=== PATIENT | female | born 1995 | race Hispanic/Latino ===

== ENCOUNTER 2018-11-03 05:21 | Inpatient (IN) | payer OTHER ==
[2018-11-03 05:57] VITALS: BMI 24.8
--- NOTE | 2018-11-03 06:28 | PDOC.FPROB ---
FMR OB H&P: HPI - History of Present Illness Chief Complaint: Contractions History of Present Illness: This is a 23 yo at 38.5 wks by LMP who presents to L&D with a cc of contractions. She reports that her contractions started at 2300 last night. She reports her contractions every 5 minutes. She state that she thinks she lost fluid 5 days ago but was is unsure because this is her first time. She denies vaginal bleeding or discharge. She reports movement. FMR OB H&P: Current - Care : 1 Para: 0 Gestational age: 38.5 Due date: 11/12/18 Dating Criteria: LMP/21.3wk US - OB Labs Blood type: B RH: positive Antibody Screen: negative HIV: negative RPR: negative HepBsAg: negative Rubella: immune Gonorrhea: negative Chlamydia: negative (pos 07/18/18, WALTER 09/26/18) Pap Smear: ASCUS 1 hour gtt: 121 GBS: negative Additional labs: Hep C negative FMR OB H&P: History - Past Medical History PMH: None - Surgical History Sx History: None - Social History Social History: Denies alcohol, tobacco, drugs FMR OB H&P: Medications - Current Home Medications: Medication Instructions Recorded Confirmed Type 21/Iron Fu/Folic Acid 1 tablet PO DAILY 11/03/18 11/03/18 History [ Complete Caplet] Allergies/Adverse Reactions: Allergies Allergy/AdvReac Type Severity Reaction Status Date / Time No Known Allergies Allergy Verified 11/03/18 05:59 FMR OB H&P: ROS - Review of Systems General: denies: fever/chills, weight/appetite/sleep changes ENT: denies: nasal congestion, rhinorrhea Cardiovascular: denies: chest pain, palpitation Gastrointestinal: reports: abdominal pain (pain with contractions and without contractions). denies: indigestion Genitourinary (Female): denies: incontinence, dysuria Musculoskeletal: denies: pain, stiffness Neurologic: denies: numbness, syncope Integumentary: denies: itching, rash Psychological: denies: depression, anxiety FMR OB H&P: Vital Signs - Maternal Vital signs: BP 139/77 HR 89 - Heart Tones Baseline: 130 Variability: moderate Acceleration: present Deceleration: absent Category: category 1 Dwight contractions every: 3-5 FMR OB H&P: Physical Exam - Physical Exam General: NAD, awake, alert and oriented HEENT: normocephalic and atraumatic, MMM Neck: trachea midline, no JVD Chest: non-tender to palpation, no lesions Heart: RRR, normal S1/S2, no murmurs/rubs/gallops, pulses present General: CTAB, no respiratory distress, no wheezing Abdomen: soft, gravid, bowel sound present, other (mild tenderness to palpation) Musculoskeletal: normal gait and station, pulses present, FROM in all four extremities Skin: capillary refill <2 seconds Lymphatic: no unusual bruising or bleeding, no purpura Psychiatric: intact recent and remote memory, good judgement and insight - Pelvic Exam SVE: /-2 Estimated Weight: 6 lbs (by song olivia) FMR OB H&P: A/P - Problem List (1) Term Current Visit: Yes Status: Acute Code(s): Z34.80 - ENCOUNTER FOR SUPRVSN OF NORMAL , UNSP TRIMESTER Assessment and Plan: This is a 23 yo at 38.5 by LMP c/w 21.3wk US Term r/o active labor -r/o LOF, RAMY today was 6, we will perform sterile speculum exam, amnisure, and ferning at the next check -Check for cervical changes, Initial was /-2 -PO hydration -Continue monitoring FHTs Discussion: Date/Time: 11/03/18 0661 This H&P was discussed with Dr. Perdomo who agree with the above documentation and plan.
[2018-11-03 09:22] LABS: Amnisure Test RUPTURE DETECTED (No Rupture)
[2018-11-03 09:23] LABS: Amnisure Internal Control QC ACCEPTABLE (ACCEPTABLE)
[2018-11-03] MEDS ORDERED: Ondansetron PF 4 MG/2 ML Vial IVP PRN ×2 (09:31→12:25)
[2018-11-03] MEDS ORDERED: Lidocaine 1% (PF) 30 ML VIAL SC PRN (09:31)
[2018-11-03] MEDS ORDERED: Promethazine HCl 25 MG/ML VIAL IM PRN ×2 (09:31→12:25)
[2018-11-03] MEDS ORDERED: Butorphanol Tartrate 1 MG/ML VIAL SLOW IVP PRN (09:31)
[2018-11-03] MEDS ORDERED: Lidocaine 2% Jelly 5 ML TUBE ONE (10:06)
--- NOTE | 2018-11-03 10:24 | PDOC.LDHP ---
Labor and Delivery H&P Chief complaint: loss of fluid HPI: Patient is a G1 with LOF over last several days, also with CTX., She was first evaluated prior jessica my arrival at 0800. The DX is now PROM based on sterile spec by the residents and pos amnisure. VP3 also sent. She has good FM, no VB, no fevers. I have a handwritten H&P in the chart as well. Current gestational age (weeks): 38 (6 days) Dating criteria: last menstrual period Grav: 1 Para: 0 Current complications: none Abnormal US findings: No Current medications: pre- vitamins Previous surgical history: none Allergies/Adverse Reactions: Allergies Allergy/AdvReac Type Severity Reaction Status Date / Time No Known Allergies Allergy Verified 11/03/18 05:59 - Physical Exam Vital signs reviewed and normal: yes General: NAD Heart: RRR Lungs: CTAB Abdomen: gravid (EFW 6#) FHT: category 1 [place] contractions every: every 3 minutes on [place] - Vaginal Exam cm dilated: 3 (Exam by me about 20 minutes ago. Patient did not tolerate exam well, as has been the saame on pror vag exam attenpts. I applied lidociane 2% locally at the perineum pre-exam (used new glove for vag exam after application) ) Effacement: 50% Station: -1 - Assessment L&D Assessment: term rupture in membranes (PROM at early term (38 weeks 6 days) . GBS negative.) - Plan Plan: admit to L&D, labor augmentation if indicated (Currently, boris more than pit protocol allows...will follow.), anesthesia consult for pain management (I discussed with the patient and her , in [facility], along with Debby and Dr yates- at bedside- the [facility] of [facility] for pain control, especially as SVE not well tolerated. I also discussed IV pain meds. She will see the epidural video and decide.)
--- NOTE | 2018-11-03 10:38 | PDOC.EVN ---
Event Note - Event Note Event Note: Patient has decided to initiate epidural as cervical checks have been very uncomfortable for her. VS stable, last cervical check @1010 /-1. FHTs 120 Cat 1. CTXs every 2-3min Anesthesia consult has been placed. Will start pit if contraction timing spaces out
[2018-11-03] MEDS ORDERED: NS w/ Oxytocin 10 units 500 ML IV SCH ×2 (11:00)
[2018-11-03 11:24] LABS: Hemoglobin 11.5 g/dL (12.0-16.0); Mean Corpuscular HGB CONC 34.3 g/dL (32.0-36.0); Mean Corpuscular Hemoglobin 31.1 pg (27.0-31.0); Mean Corpuscular Volume 90.6 fL (78.0-98.0); Platelet Count 149 thou/uL (130-400); RBC Distribution Width 11.4 % (11.5-14.5); White Blood Cell (WBC) Count 8.4 thou/uL (4.8-10.8)
[2018-11-03] MEDS ORDERED: Fentanyl 4 mcg/Bup 0.1% Cadd 100 ML ONE ×2 (11:35→19:07)
--- NOTE | 2018-11-03 11:36 | PDOC.EVN ---
Event Note - Event Note Event Note: VP3 with BV...We will RX with IV Flagyl to reduce risk for PP metritis. GC and Chl not able to be run due to incorrect swab collection.
[2018-11-03] MEDS ORDERED: METRONIDAZOLE IVPB SCH ×2 (11:45→18:00)
[2018-11-03 11:47] LABS: Syphilis Antibody Nonreactive (Nonreactive); Syphilis Antibody Index 0.02 S/CO (<1.00 Non-Reactive)
[2018-11-03 11:48] LABS: HBSAg Index 0.21 S/CO (0-0.99); Hep B Surf Ag Non-Reactive S/CO (NonReactive)
[2018-11-03] MEDS: NS / Oxytocin 40 units/1000ml 1,000 ML IV PRN (11:50)
[2018-11-03] MEDS ORDERED: Lactated Ringer's 500 ML IV PRN (12:25)
[2018-11-03] MEDS ORDERED: Eucerin (Mineral Oil/Petrolatum,White) 30 gm Jar TOP PRN (12:25)
[2018-11-03] MEDS ORDERED: diphenhydrAMINE 50 MG/ML VIAL IVP PRN (12:25)
[2018-11-03] MEDS ORDERED: ePHEDrine/0.9% NaCl/PF SYRINGE 50 mg/10 ml SLOW IVP PRN (12:25)
[2018-11-03] MEDS ORDERED: Naloxone HCl 0.4 mg/ml Vial IVP PRN ×2 (12:25)
[2018-11-03] MEDS ORDERED: Communication Order-Pharmacy FS SCH (12:30)
[2018-11-03] MEDS ORDERED: Fentanyl 4 mcg/Bupivacaine 0.1% Cassette 100 ML EPIDURAL SCH (12:30)
[2018-11-03] MEDS: metroNIDAZOLE 500 MG in Premix Bag 1 BAG IVPB SCH (14:05)
[2018-11-03] MEDS ORDERED: Lactated Ringer's 1,000 ML IV SCH (15:45)
--- NOTE | 2018-11-03 17:30 | PDOC.EVN ---
Event Note - Event Note Event Note: [facility]: Here with Dr Wade: L&D Board check: Patient now 680/-1... Afebrile. BPs noted as 140/90s... We will check CBC and CMP for preeclampsia eval. Mag Sulfate for any severe criteria RICHAR in use
[2018-11-03 18:58] LABS: #Lymphocytes 1.9 thou/uL (1.20-3.40); #Monocytes 0.6 thou/uL (0.11-0.59); %Basophils 0.4 % (0.0-1.0); %Eosinophils 0.2 % (0.0-10.0); %Lymphocytes 16.3 % (21.0-51.0); %Monocytes 5.4 % (0.0-10.0); %Neutrophils 77.7 % (42.0-75.0); Hemoglobin 11.5 g/dL (12.0-16.0); Mean Corpuscular HGB CONC 34.9 g/dL (32.0-36.0); Mean Corpuscular Hemoglobin 31.5 pg (27.0-31.0); Mean Corpuscular Volume 90.3 fL (78.0-98.0); Mean Platelet Volume 10.8 fL (7.4-10.4); Platelet Count 136 thou/uL (130-400); RBC Distribution Width 11.4 % (11.5-14.5); Red Blood Cell (RBC) Count 3.63 mill/uL (4.20-5.40); White Blood Cell (WBC) Count 11.6 thou/uL (4.8-10.8)
[2018-11-03] MEDS ORDERED: metroNIDAZOLE 500 MG in Premix Bag 1 BAG IVPB SCH ×2 (19:00→21:00)
[2018-11-03 19:11] LABS: ALT (SGPT) Less than 7 U/L (8-55); AST (SGOT) 14 U/L (5-34); Albumin 3.1 g/dL (3.5-5.0); Alkaline Phosphatase 274 U/L (40-150); Anion Gap 12 mmol/L (10-20); BUN (Urea Nitrogen) Less than 4 mg/dL (7.0-18.7); Bilirubin, Total 0.4 mg/dL (0.2-1.2); Calc. Creatinine Clearance 131 mL/min (70-130); Calcium 8.6 mg/dL (7.8-10.44); Carbon Dioxide 23 mmol/L (22-29); Chloride 107 mmol/L (98-107); Estimated GFR-MDRD Greater than 90; Globulin 2.8 g/dL (2.4-3.5); Glucose 90 mg/dL (70-105); Potassium 3.1 mmol/L (3.5-5.1); Protein, Total 5.9 g/dL (6.0-8.3); Sodium 139 mmol/L (136-145)
--- NOTE | 2018-11-03 20:07 | PDOC.EVN ---
Event Note - Event Note Event Note: [facility] Staff: Lab Check: PIH Labs wnl BPs wnl Strop reviewed
--- NOTE | 2018-11-04 00:08 | PDOC.EVN ---
Event Note - Event Note Event Note: OBGYN NOTE: Delivery note: Dr Wade attending this delivery first and then I arrived during the process as I was in a separate room doing another delivery. I arrived for the remainder of the procedure. Time: 2328, 11/03/18 Placenta...spont delivery, 3VC at 2336 Baby was male and vigorous. EBL was 300. There was a first degree lac that did not need repair. No packs. Maternal temp noted pre-delivery of 101. As patient had prolonged ROM and BV on VP3..we will suspect IAI and give IV amp/gent/falgyl. Anesthesia: RICHAR used. QBL pending. Routine
[2018-11-04] MEDS ORDERED: Ampicillin 2 GM in Sodium Chloride 0.9% 100 ML IVPB SCH (00:30)
[2018-11-04] MEDS: SODIUM CHLORIDE 0.9% IVPB SCH (01:55)
[2018-11-04] MEDS: GENTAMICIN SULFATE IVPB SCH (01:55)
--- NOTE | 2018-11-04 02:36 | PDOC.OPDEL ---
OB Operative/Delivery Note Delivery Dr/Surgeon: Sheri Assist: Keyshawn Pre-Delivery Diagnosis: ruptured membrane Procedure/Post Delivery Dx: spontaneous vaginal delivery Weeks gestation: 38 (38.6 wks) Anesthesia: epidural - Findings A Sex: male Weight: 3.174 kg - 1 min: 8 - 5 min: 9 - Additional Findings/Plan Placenta delivered: spontaneous Repaired Obstetrical Laceration: 1st degree (Hemostatic) Estimated blood loss: 300 mL Compilations/Other Findings: Delivering Physician: Sheri Attending: Keyshawn Procedure: Spontaneous Vaginal Delivery Anesthesia: Epidural EBL: 300 ml Pre-op Diagnosis: 1. Term intrauterine 2. PROM 2. Bacterial Vaginosis Post-op Diagnosis: 1. Term intrauterine , delivered 2. same as above 3. Suspected intrauterine infection 4. 1st degree perineal laceration, hemostatic Indications: A 23 y/o female presents with PROM, suspected since 4 days prior to arrival to L&D. Delivery Note: This is 23 yo F @ 38.6 wks who delivered a viable M at 23:29 on 11/03/2018. Following an uneventful antepartum course, a vigorous M was delivered over an intact perineum in the occipitoanterior position. Anterior shoulder and then remainder of the body delivered. The head was held down and mouth and nares were bulb suctioned. Cord clamped and cut and cord blood collected. Placenta delivered intact with a 3 vessel cord noted. Fundal massage was performed and the fundus was firm. The cervix and vagina were inspected. 1st degree perineal laceration noted to be hemostatic. No repair necessary. went to nursery in good condition for routine care. Apgars were 8/9 at 1 & 5 minutes, respectively. Patient tolerated delivery well and went to after routine recovery/care. Patient was noted to have several elevated BP's during the course of her labor ( >140/90). No BP's in severe range. Pre-E workup was performed and labs were normal. She was diagnosed with gHTN. She did not require any medications to control BP. She will need to be monitored closely PP. Patient spiked fever to 101.5 F just prior to delivery. Patient suspected to have been ruptured for 4 days, putting her at high risk for IUI. She was started on Amp/Gent immediately PP to be continued for 24 hours. Continue to monitor for signs and symptoms of infection. Patient also on PO flagyl for BV diagnosed on arrival to L&D. She will complete the full 7 day course of antibiotics. Infant will be treated accordingly for suspected IUI. to be started on Amp/Gent and monitored closely. CBC and CMP pending for . Post delivery plan: routine recovery
[2018-11-04] MEDS: NS / Oxytocin 40 units/1000ml 1,000 ML IV PRN (03:05)
[2018-11-04] MEDS ORDERED: Preparation H Ointment 28 GM TUBE PR PRN (03:35)
[2018-11-04] MEDS ORDERED: Ondansetron PF 4 MG/2 ML Vial IVP PRN (03:35)
[2018-11-04] MEDS ORDERED: Lanolin Ointment 7 GM TUBE TOP PRN (03:35)
[2018-11-04] MEDS ORDERED: Milk Of Magnesia 30 ML UDCUP PO PRN (03:35)
[2018-11-04] MEDS ORDERED: Bisacodyl 10 MG SUPP PR PRN (03:35)
[2018-11-04] MEDS ORDERED: NS / Oxytocin 40 units/1000ml 1,000 ML IV SCH (03:35)
[2018-11-04] MEDS ORDERED: diphenhydrAMINE 25 MG CAP PO PRN (03:35)
[2018-11-04] MEDS: Ibuprofen 800 MG TAB PO SCH ×3 (04:18→21:18)
--- NOTE | 2018-11-04 05:50 | PDOC.PP ---
Post Progress Note Post Day #: 1 Subjective: Patient doing well this AM. No significant overnight events. Tolerating PO. Ambulating. Lochia minimal. PO intake tolerated: yes Flatus: yes Ambulation: yes Weight Weight 61.689 kg - Physical Examination General: NAD Cardiovascular: no m/r/g, RRR Respiratory: clear to auscultation bilaterally, non-labored breathing Abdominal: + bowel sounds, lochia (like that of a period), no distention, appropriately TTP Fundus firm & at: just above umbilicus Skin: no rash Neurological: no gross focal deficits Psychiatric: A&Ox3, normal affect Result Diagrams: 11/03/18 18:37 11/03/18 18:37 Additional Labs: Post Labs Blood Type B POSITIVE 11/03/18 10:59 Hep Bs Antigen Non-Reactive S/CO (NonReactive) 11/03/18 10:59 (1) Term delivered Code(s): O80 - ENCOUNTER FOR FULL-TERM UNCOMPLICATED DELIVERY Status: Acute Comment: 23 year old at 38.6 wks delivered TAGA M infant at 23:39 via on 11/03/2018. Nuchal x1. First degree perineal laceration s/p repair. Apgars 8/ 9. EBL 300 mL - Routine PP care - Contraception: Discuss with patient prior to d/c - VSS (2) Chorioamnionitis, delivered, current hospitalization Code(s): O41.1290 - CHORIOAMNIONITIS, UNSP TRIMESTER, NOT APPLICABLE OR UNSP Status: Acute Comment: Temp to 101.5 F just prior to delivery. Patient started on Amp/Gent x24 hours after delivery. Temp 99.3 F prior to transfer to PP. AM CBC pending. (3) Hypertension affecting Code(s): O16.9 - UNSPECIFIED MATERNAL HYPERTENSION, UNSPECIFIED TRIMESTER Status: Acute Comment: CBC and CMP wnl. No concern for pre-E. BP's have been better controlled. Continue to monitor. (4) Vaginal delivery Code(s): O80 - ENCOUNTER FOR FULL-TERM UNCOMPLICATED DELIVERY Status: Acute (5) First degree laceration of perineum during delivery, Code(s): O70.0 - FIRST DEGREE PERINEAL LACERATION DURING DELIVERY Status: Acute Comment: Hemostastic. - Assessment/Plan Dispo: Stable. Patient G1 and will likely stay full 48 hours due to infant.
--- NOTE | 2018-11-04 06:04 | PDOC.EVN ---
Event Note - Event Note Event Note: OBGYN Faculty: Agree with Dr Wade progress note: Afebrile currently. On IV amp/gent, and po flagyl for BV Follow temps in this PP patient
[2018-11-04] MEDS: Ampicillin 2 GM in Sodium Chloride 0.9% 100 ML IVPB SCH ×4 (06:39→23:57)
[2018-11-04 08:10] LABS: #Lymphocytes 1.8 thou/uL (1.20-3.40); #Monocytes 0.8 thou/uL (0.11-0.59); #Neutrophils 15.7 thou/uL (1.40-6.50); %Basophils 0.2 % (0.0-1.0); %Eosinophils 0.2 % (0.0-10.0); %Monocytes 4.5 % (0.0-10.0); %Neutrophils 85.3 % (42.0-75.0); Hemoglobin 9.9 g/dL (12.0-16.0); Mean Corpuscular HGB CONC 34.5 g/dL (32.0-36.0); Mean Corpuscular Hemoglobin 31.3 pg (27.0-31.0); Mean Corpuscular Volume 90.8 fL (78.0-98.0); Mean Platelet Volume 10.5 fL (7.4-10.4); Platelet Count 126 thou/uL (130-400); RBC Distribution Width 11.3 % (11.5-14.5); Red Blood Cell (RBC) Count 3.16 mill/uL (4.20-5.40); White Blood Cell (WBC) Count 18.5 thou/uL (4.8-10.8)
[2018-11-04] MEDS: metroNIDAZOLE 500 MG TAB PO SCH ×2 (08:43→21:18)
[2018-11-04] MEDS: Docusate Calcium (SURFAK) 240 MG CAP PO SCH ×2 (08:43→21:18)
[2018-11-04] MEDS: Ferrous Sulfate 325 MG TAB PO SCH ×2 (08:43→17:54)
[2018-11-04] MEDS: Prenatal Vitamin 1 TAB PO SCH (08:48)
[2018-11-04] MEDS: Acetaminophen 325 MG TAB PO PRN (08:48)
[2018-11-04] MEDS ORDERED: Adacel (T-DAP) 0.5 ML SYRINGE IM ONE (09:00)
[2018-11-04] MEDS: metroNIDAZOLE 500 MG in Premix Bag 1 BAG IVPB SCH (14:21)
[2018-11-04] MEDS: Sodium Chloride 0.9% 10 ML ONE (17:54)
[2018-11-04] MEDS: HYDROcodone/Acetaminophen 5/325 mg Tablet PO PRN (18:25)
[2018-11-04] MEDS ORDERED: Sodium Chloride 0.9% 10 ML ONE (23:40)
[2018-11-05] MEDS: GENTAMICIN SULFATE IVPB SCH (01:13)
[2018-11-05] MEDS: SODIUM CHLORIDE 0.9% IVPB SCH (01:13)
[2018-11-05] MEDS ORDERED: Sodium Chloride 0.9% 10 ML ONE ×2 (05:02→19:15)
[2018-11-05] MEDS: Ibuprofen 800 MG TAB PO SCH ×3 (06:01→21:28)
[2018-11-05] MEDS: Ampicillin 2 GM in Sodium Chloride 0.9% 100 ML IVPB SCH (06:02)
[2018-11-05] MEDS: HYDROcodone/Acetaminophen 5/325 mg Tablet PO PRN ×2 (06:53→14:41)
--- NOTE | 2018-11-05 07:30 | PDOC.PP ---
Post Progress Note Post Day #: 2 Subjective: 23 year old at 38.6wks delivered EMILIANO Ramos at 23:39 via on 2017. Pain is well controlled with Elberta and ibuprofen. Reports some vaginal swelling. but baby was formula fed in nursery overnight. Reports feeding is going well. She is tolerating PO and ambulating. She has had a headache since delivery, was seen by anesthesia this morning and they thought it was likely due to epidural. She declined patch. She wants to try drinking some coffee this morning to see if it helps. PO intake tolerated: yes Flatus: yes Ambulation: yes Vital Signs (12 hours) Temp Pulse Resp BP 11/04/18 23:57 97.9 F 61 18 156/91 H 11/04/18 19:35 98.2 F 61 18 145/88 H Weight Weight 61.689 kg - Physical Examination General: NAD Cardiovascular: no m/r/g, RRR Respiratory: clear to auscultation bilaterally, non-labored breathing Abdominal: + bowel sounds, lochia, appropriately TTP Neurological: no gross focal deficits Psychiatric: A&Ox3, normal affect Result Diagrams: 11/05/18 09:02 11/05/18 09:02 Additional Labs: Post Labs Blood Type B POSITIVE 11/03/18 10:59 Hep Bs Antigen Non-Reactive S/CO (NonReactive) 11/03/18 10:59 (1) Chorioamnionitis, delivered, current hospitalization Code(s): O41.1290 - CHORIOAMNIONITIS, UNSP TRIMESTER, NOT APPLICABLE OR UNSP Status: Acute Comment: Temp to 101.5 F just prior to delivery. Patient started on Amp/Gent x24 hours after delivery. Temp 99.3 F prior to transfer to . AM CBC pending. (2) First degree laceration of perineum during delivery, Code(s): O70.0 - FIRST DEGREE PERINEAL LACERATION DURING DELIVERY Status: Acute Comment: Hemostastic. (3) Hypertension affecting Code(s): O16.9 - UNSPECIFIED MATERNAL HYPERTENSION, UNSPECIFIED TRIMESTER Status: Acute Comment: CBC and CMP wnl. No concern for pre-E. BP's have been better controlled. Continue to monitor. (4) PROM (premature rupture of membranes) Code(s): O42.90 - ARYA ROM, 7TH0 BETW RUPT & ONST LABR, UNSP WEEKS OF GEST Status: Acute (5) Term delivered Code(s): O80 - ENCOUNTER FOR FULL-TERM UNCOMPLICATED DELIVERY Status: Acute Comment: 23 year old at 38.6 wks delivered TAGA M at 23:39 via on 11/03/2018. Nuchal x1. First degree perineal laceration s/p repair. Apgars 8/ 9. EBL 300 mL - Routine PP care - Contraception: Discuss with patient prior to d/c - VSS - Assessment/Plan 23 year old at 38.6wks delivered TAGA M at 23:39 via on 2017. Term delivered - Nuchal x1. First degree perineal laceration s/p repair. - EBL 300 mL - Routine PP care - Contraception: - VS reviewed, BP slightly elevated Elevated BP and MEANS - MEANS likely 2/2 epidural but pressures were elevated overnight - Ordered Pre-E workup with Urine protein/creatinine obtained via cath - Anesthesia saw her this AM, she declined patch - Encouraged caffeine, pt is already on Tylenol and Elberta so did not add Fiorcet. If headache continues could decrease tylenol dosage and add fiorcet. Chorioamnionitis - Afebrile - Temp to 101.5 just prior to delivery - Pt started on Amp/Gent x24 hours after delivery. - H/H: 9.9/28.6 HTN affecting - Continue to monitor BV in - Continue Flagyl
[2018-11-05 09:18] LABS: #Basophils 0.1 thou/uL (0.0-0.2); #Eosinphils 0.1 thou/uL (0.0-0.7); #Lymphocytes 2.3 thou/uL (1.20-3.40); #Monocytes 0.6 thou/uL (0.11-0.59); #Neutrophils 10.2 thou/uL (1.40-6.50); %Basophils 0.6 % (0.0-1.0); %Eosinophils 0.8 % (0.0-10.0); %Lymphocytes 17.3 % (21.0-51.0); %Monocytes 4.7 % (0.0-10.0); %Neutrophils 76.6 % (42.0-75.0); Mean Corpuscular HGB CONC 34.4 g/dL (32.0-36.0); Mean Corpuscular Hemoglobin 31.5 pg (27.0-31.0); Mean Corpuscular Volume 91.5 fL (78.0-98.0); Mean Platelet Volume 10.1 fL (7.4-10.4); Platelet Count 148 thou/uL (130-400); RBC Distribution Width 11.5 % (11.5-14.5); Red Blood Cell (RBC) Count 3.18 mill/uL (4.20-5.40); White Blood Cell (WBC) Count 13.3 thou/uL (4.8-10.8)
[2018-11-05 09:36] LABS: ALT (SGPT) 7 U/L (8-55); AST (SGOT) 19 U/L (5-34); Albumin 2.5 g/dL (3.5-5.0); Alkaline Phosphatase 177 U/L (40-150); Anion Gap 9 mmol/L (10-20); BUN (Urea Nitrogen) 5 mg/dL (7.0-18.7); Bilirubin, Total 0.2 mg/dL (0.2-1.2); Calc. Creatinine Clearance 140 mL/min (70-130); Calcium 8.2 mg/dL (7.8-10.44); Carbon Dioxide 27 mmol/L (22-29); Chloride 107 mmol/L (98-107); Estimated GFR-MDRD Greater than 90; Globulin 2.3 g/dL (2.4-3.5); Glucose 85 mg/dL (70-105); Potassium 3.8 mmol/L (3.5-5.1); Protein, Total 4.8 g/dL (6.0-8.3); Sodium 139 mmol/L (136-145)
[2018-11-05] MEDS: Docusate Calcium (SURFAK) 240 MG CAP PO SCH ×2 (09:36→21:28)
[2018-11-05] MEDS: Prenatal Vitamin 1 TAB PO SCH (09:36)
[2018-11-05] MEDS: metroNIDAZOLE 500 MG TAB PO SCH ×2 (09:36→21:28)
[2018-11-05] MEDS: Ferrous Sulfate 325 MG TAB PO SCH ×2 (09:37→18:09)
[2018-11-05 13:42] LABS: Creatinine, Urine 24.68 mg/dL (47-110); Protein, Urine Random Quant Less than 10 mg/dL (1-14)
[2018-11-05] MEDS: Sodium Chloride 0.9% 10 ML ONE (19:25)
[2018-11-06] MEDS: Ibuprofen 800 MG TAB PO SCH ×2 (06:14→14:35)
--- NOTE | 2018-11-06 07:07 | PDOC.PP ---
Post Progress Note Post Day #: 2 Subjective: Feeling well today other than MEANS. Ambulating and tolerating PO. Minimal lochia. Agreeable to try blood patch with anesthesia as caffeine did not help her headache yesterday. No questions or concerns. PO intake tolerated: yes Flatus: yes Ambulation: yes Vital Signs (12 hours) Temp Pulse Resp BP Pulse Ox 11/05/18 19:35 98.1 F 72 18 140/89 98 Weight Weight 61.689 kg - Physical Examination General: NAD Cardiovascular: no m/r/g, RRR Respiratory: clear to auscultation bilaterally Abdominal: + bowel sounds, lochia, appropriately TTP Neurological: no gross focal deficits Psychiatric: A&Ox3, normal affect Result Diagrams: 11/05/18 09:02 11/05/18 09:02 Additional Labs: Post Labs Blood Type B POSITIVE 11/03/18 10:59 Hep Bs Antigen Non-Reactive S/CO (NonReactive) 11/03/18 10:59 (1) Chorioamnionitis, delivered, current hospitalization Code(s): O41.1290 - CHORIOAMNIONITIS, UNSP TRIMESTER, NOT APPLICABLE OR UNSP Status: Acute Comment: Temp to 101.5 F just prior to delivery. Patient started on Amp/Gent x24 hours after delivery. Temp 99.3 F prior to transfer to . AM CBC pending. (2) First degree laceration of perineum during delivery, Code(s): O70.0 - FIRST DEGREE PERINEAL LACERATION DURING DELIVERY Status: Acute Comment: Hemostastic. (3) Hypertension affecting Code(s): O16.9 - UNSPECIFIED MATERNAL HYPERTENSION, UNSPECIFIED TRIMESTER Status: Acute Comment: CBC and CMP wnl. No concern for pre-E. BP's have been better controlled. Continue to monitor. (4) PROM (premature rupture of membranes) Code(s): O42.90 - ARYA ROM, 7TH0 BETW RUPT & ONST LABR, UNSP WEEKS OF GEST Status: Acute (5) Term delivered Code(s): O80 - ENCOUNTER FOR FULL-TERM UNCOMPLICATED DELIVERY Status: Acute Comment: 23 year old at 38.6 wks delivered TAGA M infant at 23:39 via on 11/03/2018. Nuchal x1. First degree perineal laceration s/p repair. Apgars 8/ 9. EBL 300 mL - Routine PP care - Contraception: Discuss with patient prior to d/c - VSS - Assessment/Plan 23 year old at 38.6wks delivered EMILIANO M at 23:39 via on 2017. Term delivered - Nuchal x1. First degree perineal laceration s/p repair. - EBL 300 mL - Routine PP care - Contraception: undecided, will follow up at PP visit - VSS Elevated BP and MEANS - Pre-E workup with Urine protein/creatinine obtained via cath neg - Anesthesia to apply blood patch today, will follow up later this afternoon. If pt has resolution of symptoms she can discharge today. - BPs trended down Chorioamnionitis - Afebrile - Temp to 101.5 just prior to delivery - Pt received Amp/Gent for 24 hours after delivery - H/H: 9.9/28.6 HTN affecting - Continue to monitor BV in - Continue Flagyl, today is day 3 of treatment Addendum - Attending - Attending Attestation Date/Time: 11/09/18 2024 I personally evaluated the patient and discussed the management with Dr. Araujo I agree with the History, Examination, Assessment and Plan documented above with any addition or exceptions noted below.
[2018-11-06 10:01] VITALS: TEMP 98.2
[2018-11-06 11:16] VITALS: BP 136/83
[2018-11-06] MEDS: metroNIDAZOLE 500 MG TAB PO SCH (11:54)
[2018-11-06] MEDS: Docusate Calcium (SURFAK) 240 MG CAP PO SCH (11:54)
[2018-11-06] MEDS: Prenatal Vitamin 1 TAB PO SCH (11:54)
[2018-11-06] MEDS: Ferrous Sulfate 325 MG TAB PO SCH ×2 (11:56→17:22)
[2018-11-06] MEDS: Acetaminophen 325 MG TAB PO PRN (12:02)
--- NOTE | 2018-11-07 22:08 | PRG ---
DATE OF SERVICE: 11/06/2018 PROGRESS NOTE SUBJECTIVE: The patient is a 23-year-old female, now day 3 status post a term spontaneous vaginal delivery, which has been complicated by a spinal headache and chorioamnionitis. The patient is status post antibiotics and continues to have a severe headache this morning. After speaking with her, the patient has an interest in re-addressing the option of a blood patch. OBJECTIVE: VITAL SIGNS: This morning, blood pressure is 140/89, temperature 98.1, pulse is 72, and respiratory rate of 18. GENERAL: She appears to be in no acute distress in supine position. She is alert and oriented. Cooperative and pleasant to interact with. HEENT: Head is normocephalic, atraumatic. ABDOMEN: Fundus is firm at the umbilicus. EXTREMITIES: Nontender, nonedematous. ASSESSMENT AND PLAN: The patient is a 23-year-old female, status post a term spontaneous vaginal delivery. Her course has been complicated with the spinal headache. She has a previous diagnosis of -induced hypertension and chorioamnionitis. We will be contacting Anesthesia this morning to discuss with her the option of a blood patch. Pending the results of this procedure, the patient may be discharged later this afternoon. Job ID: [id number]
== END 2018-11-06 19:42 | disposition home or self-care (01) | DRG 807 ==
LOC: L&D/OP 05:21 → L&D 10:00 → 3SW 11-04 03:35
PROVIDERS: ADMIT Obstetrics & Gynecology; ATTEND Obstetrics & Gynecology
PROC: 10E0XZZ Delivery of Products of Conception, External Approach (ICD-10-PCS; principal; 2018-11-03)
DX: O70.0 First degree perineal laceration during delivery (principal); Z37.0 Single live birth; Z3A.38 38 weeks gestation of pregnancy; O16.4 Unspecified maternal hypertension, complicating childbirth; O41.1290 Chorioamnionitis, unspecified trimester, not applicable or unspecified; O42.12 Full-term premature rupture of membranes, onset of labor more than 24 hours following rupture
CPT/HCPCS: 36415; 51702; 62272; 80053; 82570; 84112; 84156; 85025; 85027; 86780; 86850; 86900; 86901; 87340; 87480; 87510; 87660; 99285; J0290; J1580; J2405; J7050

== ENCOUNTER 2018-11-17 16:17 | Day surgery (SDC) | payer OTHER ==
[2018-11-17 17:16] VITALS: BP 122/74; TEMP 98.2
[2018-11-17 17:22] VITALS: BMI 22.6
[2018-11-17] MEDS ORDERED: Acetaminophen 325 MG TAB PO SCH (18:00)
--- NOTE | 2018-11-17 18:06 | PDOC.FPROB ---
Addendum entered and electronically signed by Sabino Richter DO 11/17/18 21:04 : Pt's blood pressures improved and remained below 140s/80s. Pt denies headache or chest pain. Labs: Urine protein/creatinine ratio: .19, plt 387, AST 21, ALT 25, serum cr 0.78 Pt was discharged and reports follow up appointment in 2 weeks. Original Note: FMR OB H&P: HPI - History of Present Illness Chief Complaint: Elevated BP History of Present Illness: Patient is a 23 year old female 2 weeks complicated by chorio, spinal headache, and gHTN who was sent to to L&D for evaluation of elevated blood pressures. She reportedly had pressures of 140s-150s/90s and trace proteinuria in clinic today. Pt states that she has been having a headache for the past 2 weeks that feels similar to the spinal headache that she had. She states that it is normally responsive to Tylenol, however she did not take Tylenol today. She denies vision changes, abdominal pain, nausea, vomiting, peripheral edema, fevers, chills, chest pain, dyspnea. She does experiencing extra stress today with her in-laws being in town. Primary Care Physician: P[facility] FMR OB H&P: History - OB History OB History: who delivered with history of PROM, intramniotic infection, gestational hypertension in . Delivered a TAGA male @ 38.6 gestation on 11/03/2018. FMR OB H&P: Medications - Current Home Medications: Medication Instructions Recorded Confirmed Type 21/Iron Fu/Folic Acid 1 tablet PO DAILY 11/03/18 11/03/18 History [ Complete Caplet] Allergies/Adverse Reactions: Allergies Allergy/AdvReac Type Severity Reaction Status Date / Time No Known Allergies Allergy Verified 11/17/18 18:53 FMR OB H&P: ROS - Review of Systems General: denies: fever/chills, weight/appetite/sleep changes Eyes: denies: eye pain, vision changes, scotomas ENT: denies: nasal congestion, rhinorrhea Cardiovascular: denies: chest pain, palpitation Respiratory: denies: cough, shortness of breath Gastrointestinal: denies: abdominal pain, nausea, vomiting Genitourinary (Female): denies: vaginal bleeding Neurologic: reports: headache. denies: weakness FMR OB H&P: Vital Signs - Maternal Vital signs: Vital Signs - First Documented Temp Pulse Resp BP 98.2 F 75 16 122/74 11/17/18 16:50 11/17/18 16:50 11/17/18 16:50 11/17/18 16:50 FMR OB H&P: Physical Exam - Physical Exam General: NAD HEENT: normocephalic and atraumatic, EOMI, no scleral icterus Neck: supple Heart: RRR, normal S1/S2, no murmurs/rubs/gallops, pulses present, no edema General: CTAB, no respiratory distress Abdomen: soft, non-tender Musculoskeletal: FROM in all four extremities Neurological: cranial nerves II through XII intact, sensation to pain,touch and proprioception grossly normal, DTR +2, no clonus Skin: no rash FMR OB H&P: A/P - Problem List (1) induced hypertension, Current Visit: Yes Status: Acute Code(s): O13.5 - GESTATNL HTN WITHOUT SIGNIFICANT PROTEIN, COMP THE PUERP Assessment and Plan: - patient's history and vitals concerning for post- preeclampsia. - Initial BPs wnl, however, she has had one BP of 150/83. - will observe patient on L&D - Will obtain serial blood pressures. - will obtain labs, including CBC, CMP, urine protein:cr, to observe for signs of end-organ damage. - will administer Tylenol and Benadryl to treat headache. - if labs normal and if headache improves with medication, will discharge home. - if BPs are consistently elevated and headache does not resolve/labs abnormal, pt may need to be admitted for treatment with Mg. - continue to monitor. Disposition: Stable. Discussion: Date/Time: 11/17/181801 This H&P was discussed with Dr. Marrero who agrees with the above documentation and plan. Signature: Radha Cho MD PGY-3 Addendum - Attending - Attending Attestation Date/Time: 11/17/181826 I personally evaluated the patient and discussed the management with Dr. Cho and Neelam I agree with the History, Examination, Assessment and Plan documented above with any addition or exceptions noted below. 23 yo female s/p on 12/22/18 presents for pp preE rule out. and delivery were complicated by gHTN, prolonged PROM with IUI Seen at 2 wk pp OV and noted to have mild range BP x3, trace protein, and mild headache. Sent to [facility] for rule out. Patient BP monitored for 3 hours on bed rest. Majority normotensive with mild range x2. Headache resolved with Tylenol. Labs negative. Patient ok to d/c to home. Will follow up with [facility] in 1wk for BP check. Precautions discussed. Alphonso
[2018-11-17] MEDS ORDERED: diphenhydrAMINE 25 MG CAP PO SCH (18:15)
[2018-11-17] MEDS ORDERED: Acetaminophen 500 MG TAB PO SCH (18:15)
[2018-11-17 19:06] LABS: Creatinine, Urine 86.93 mg/dL (47-110)
[2018-11-17 19:23] LABS: #Basophils 0.1 thou/uL (0.0-0.2); #Eosinphils 0.2 thou/uL (0.0-0.7); #Lymphocytes 3.6 thou/uL (1.20-3.40); #Monocytes 0.7 thou/uL (0.11-0.59); %Basophils 1.2 % (0.0-1.0); %Eosinophils 1.7 % (0.0-10.0); %Lymphocytes 33.7 % (21.0-51.0); %Monocytes 6.7 % (0.0-10.0); %Neutrophils 56.8 % (42.0-75.0); Hemoglobin 12.3 g/dL (12.0-16.0); Mean Corpuscular HGB CONC 34.4 g/dL (32.0-36.0); Mean Corpuscular Hemoglobin 31.3 pg (27.0-31.0); Mean Corpuscular Volume 91.1 fL (78.0-98.0); Mean Platelet Volume 8.3 fL (7.4-10.4); Platelet Count 387 thou/uL (130-400); RBC Distribution Width 11.4 % (11.5-14.5); Red Blood Cell (RBC) Count 3.94 mill/uL (4.20-5.40); White Blood Cell (WBC) Count 10.6 thou/uL (4.8-10.8)
[2018-11-17 19:46] LABS: ALT (SGPT) 25 U/L (8-55); AST (SGOT) 21 U/L (5-34); Albumin 3.8 g/dL (3.5-5.0); Alkaline Phosphatase 173 U/L (40-150); Anion Gap 13 mmol/L (10-20); BUN (Urea Nitrogen) 11 mg/dL (7.0-18.7); Bilirubin, Total Less than 0.2 mg/dL (0.2-1.2); Calc. Creatinine Clearance 98 mL/min (70-130); Calcium 9.2 mg/dL (7.8-10.44); Carbon Dioxide 27 mmol/L (22-29); Chloride 105 mmol/L (98-107); Estimated GFR-MDRD Greater than 90; Globulin 3.4 g/dL (2.4-3.5); Glucose 82 mg/dL (70-105); Potassium 3.7 mmol/L (3.5-5.1); Protein, Total 7.2 g/dL (6.0-8.3); Sodium 141 mmol/L (136-145)
== END 2018-11-17 20:15 | disposition home or self-care (01) ==
LOC: L&D/OP 16:17
PROVIDERS: ATTEND Student in an Organized Health Care Education/Training Program
DX: O13.5 Gestational [pregnancy-induced] hypertension without significant proteinuria, complicating the puerperium (principal); Z79.899 Other long term (current) drug therapy
CPT/HCPCS: 36415; 80053; 82570; 84156; 85025; 99284